=== PATIENT | female | born 1985 | race Caucasian/White ===

== ENCOUNTER 2018-03-22 07:42 | Inpatient (IN) | payer SELFPAY ==
[2018-03-22] VITALS (15 sets, daily range): BP systolic 119–136; BP diastolic 64–89
[~2018-03-22] VITALS: Ht 170.2 cm; Wt 84.3 kg
[~2018-03-22 07:42] MED LIST: ENDOCET 5-3251 EACH PO; IBUPROFEN800 MG PO; Motrin PO; NATALCARE RX1 TABLET PO; Percocet 5/325,Endoc PO
[2018-03-22 09:31] LABS: BASOPHIL (%) 0.7 % (0-1); BASOPHIL COUNT 0.1 K/uL (0-0.1); EOSINOPHIL (%) 1.1 % (0-5); EOSINOPHIL COUNT 0.1 K/uL (0-0.3); HEMATOCRIT 35.4 % (36.0-46.0); HEMOGLOBIN 11.4 G/DL (11.9-15.5); IMMATURE GRANULOCYTE (%) 0.3 % (0.0-0.7); LYMPHOCYTE (%) 19.7 % (15-42); LYMPHOCYTE COUNT 1.8 K/uL (1.0-2.8); MCH 27.5 PG (29.0-34.0); MCHC 32.2 G/DL (30.0-36.0); MCV 85.5 FL (83-99); MONOCYTE (%) 6.2 % (3-12); MONOCYTE COUNT 0.6 K/uL (0-0.8); NEUTROPHIL COUNT 6.6 K/uL (1.8-6.4); PLATELET COUNT 288 K/uL (156-360); RBC DIS.WIDTH-CV 15.1 % (11.8-14.6); RBC DIS.WIDTH-SD 47.1 % (39-53); RED BLOOD COUNT 4.14 M/uL (3.80-5.20); WHITE BLOOD COUNT 9.2 K/uL (4.1-10.2)
[2018-03-22 10:16] LABS: AMPHETAMINE NEGATIVE (500 ng/mL); BARBITURATES NEGATIVE (200 ng/mL); BENZODIAZEPINES NEGATIVE (150 ng/mL); BUPRENORPHINE NEGATIVE (10 ng/mL); COCAINE NEGATIVE (150 ng/mL); METHADONE NEGATIVE (200 ng/mL); METHAMPHETAMINE NEGATIVE (500 ng/mL); OPIATES (MORPHINE) NEGATIVE (100 ng/mL); OXYCODONE NEGATIVE (100 ng/mL); PHENCYCLIDINE NEGATIVE (25 ng/mL); PROPOXYPHENE NEGATIVE (300 ng/mL); THC CANNABINOIDS NEGATIVE (50 ng/mL); TRICYCLIC ANTIDEPRESSANTS NEGATIVE (300 ng/mL)
[2018-03-22 13:00] LABS: TREPONEMA ANTIBODY NEGATIVE (NEGATIVE)
[2018-03-23] VITALS (18 sets, daily range): BP systolic 119–140; BP diastolic 55–88
[2018-03-24 07:13] VITALS: BP 130/56
[2018-03-24] MEDS ORDERED: IBUPROFEN800 MG PO (09:43)
[2018-03-24 14:35] VITALS: BP 118/66
== END 2018-03-24 18:07 | disposition home or self-care (01) | DRG 775 ==
LOC: LDRP-OP 07:42 → 2WEST 07:43 → LDRP-OP 14:47 → 2WEST 03-23 07:43
PROVIDERS: Advanced Practice Midwife
PROC: 3E0P7VZ Introduction of Hormone into Female Reproductive, Via Natural or Artificial Opening (ICD-10-PCS; principal; 2018-03-22)
PROC: 3E033VJ Introduction of Other Hormone into Peripheral Vein, Percutaneous Approach (ICD-10-PCS; principal; 2018-03-22)
PROC: 10907ZC Drainage of Amniotic Fluid, Therapeutic from Products of Conception, Via Natural or Artificial Opening (ICD-10-PCS; 2018-03-23)
PROC: 10E0XZZ Delivery of Products of Conception, External Approach (ICD-10-PCS; 2018-03-23)
DX: O80 Encounter for full-term uncomplicated delivery (principal); Z37.0 Single live birth; Z3A.38 38 weeks gestation of pregnancy
CPT/HCPCS: 85025; 86780; G0378; J0595; J7120